=== PATIENT | female | born 1950 | race Caucasian/White ===

== ENCOUNTER 2018-03-07 12:41 | Day surgery (SDC) | payer MEDICARE, OTHER, SELFPAY ==
[2018-03-07] VITALS (9 sets, daily range): BP systolic 93–130; BP diastolic 52–78; PULSE 67–85; RESP 8–20; TEMP 36.5–36.9; O2SAT 95–100; BMI 16.2
[2018-03-07] MEDS: SODIUM CHLORIDE 0.9% 1,000 ML 200 ML IV (13:20)
--- NOTE | 2018-03-07 13:56 | PM.HP.1 ---
History of Present Illness Date Patient Seen: 03/07/18 Time Patient Seen: 13:56 Chief complaint: [id number] Narrative: Jennifer is a very pleasant and remarkably healthy 67-year-old lady who presents for screening colonoscopy. She denies any problems or symptoms related to the function of her GI tract. She reports she needs colonoscopy as per the health maintenance program. She reports her last colonoscopy was 10 years ago and she had a single benign polyp removed. Patient History Family & Social History Family History: Reviewed 03/07/18 by Josefina De Jesus MD Social History: household members spouse Meds Home Medications Medication Instructions Recorded Confirmed Type cyanocobalamin (vitamin B-12) 1,000 mcg PO QDAY #0 12/08/16 03/07/18 History Vitamin D3 2,000 mg DAILY 03/07/18 03/07/18 History calcium carb-mag hydrox-simeth 400 mg DAILY 03/07/18 03/07/18 History Allergies Allergy/AdvReac Type Severity Reaction Status Date / Time No Known Drug Allergies Allergy Verified 03/07/18 13:03 Review of Systems Review of Systems All systems reviewed & are unremarkable except as noted in HPI and below Exam Vital Signs (past 8 hours): - 03/07/18 13:07 Temperature 97.7 F Pulse Rate 69 Respiratory Rate 15 Blood Pressure 130/78 Pulse Oximetry 99 Oxygen Delivery Method Room Air Narrative Exam Narrative: Very thin but pleasant lady in no distress HEENT: Normocephalic and atraumatic, pupils equal round reactive to light accommodation with anicteric sclera Lungs: Clear to auscultation bilaterally Heart: Regular rate and rhythm without murmur rub or gallop Abdomen: Soft, nontender, active bowel sounds, notably scaphoid Extremities: Warm well perfused Assessment & Plan Plan: Assessment/Plan Narrative: Very pleasant and healthy 67-year-old lady here for screening colonoscopy. We discussed the risks and benefits of the procedure the patient has expressed a desire to complete it today. She is ASA 2 as she is significantly underweight.
[2018-03-07] MEDS: MIDAZOLAM 5 MG/5 ML VIAL IV (14:15)
[2018-03-07] MEDS: fentaNYL 250 MCG/5 ML INJ IV (14:16)
--- NOTE | 2018-03-07 14:21 | PM.OP.1 ---
Operative Date/Time/Diagnoses Date of procedure: 03/07/18 Time of procedure: 14:22 Post-op diagnosis: same Procedure & Clinicians Procedure: Colonoscopy to the cecum Same procedure as scheduled: Yes Indications: Last colonoscopy 10 years ago Surgeon: Josefina De Jesus Click Yes if Unassisted: Yes Anesthesia Type: Sedation (Versed 7 mg; fentanyl 175 mcg) Operative Notes Findings: 1. Excellent prep 2. No polyps or mass lesions 3. No AV malformations 4. Very minimal diverticulosis limited the sigmoid region 5. Tortuous sigmoid colon 6. Grade 1 internal hemorrhoids Closure Type: not applicable Procedure in detail: After obtaining informed consent, the patient was brought to the GI suite and placed in the left lateral decubitus position on the examination table. After placement of appropriate monitors, the patient was given incremental doses of Versed and Fentanyl until an appropriate level of sedation was achieved. A time out was held per [facility] protocol. A digital rectal examination was performed and did not reveal any masses or obstructing lesions. The colonoscope was gently passed into the patient's anus and the entire colon navigated to the level of the cecum with moderate difficulty due to colon tortuosity. External pressure was applied to fully navigate the sigmoid and transverse colons. Once in the cecum, the scope was withdrawn being sure to go before and beyond all mucosal folds and prominences and get an excellent examination. The findings are noted above. At the level of the rectal vault, the scope was retroflexed and the internal anal canal was examined. The scope was straightened and air aspirated from the colon. The instrument was removed from the patient's body and the procedure was concluded. Total sedation time was 18 min Total withdrawal time was 9 min 3 sec The patient was allowed to awaken from sedation without difficulty and taken to the post-anesthesia care unit in good condition. Complications: none Condition: stable Disposition: PACU Plan for aftercare: 1. Discharge to home 2. Plan for next colonoscopy in 10 years or as clinically indicated
== END 2018-03-07 15:20 | disposition home or self-care (01) ==
PROVIDERS: Visit Provider Surgery
PROC: 0DJD8ZZ Inspection of Lower Intestinal Tract, Via Natural or Artificial Opening Endoscopic (ICD-10-PCS; CPT 45378; principal; 2018-03-07 13:45)
DX: Z86.010 Personal history of colon polyps (principal); K57.30 Diverticulosis of large intestine without perforation or abscess without bleeding; K64.0 First degree hemorrhoids
CPT/HCPCS: G0105; 99152; J2250; J3010

== ENCOUNTER → 2018-06-13 08:56 | Outpatient (CLI) | payer MEDICARE, OTHER, SELFPAY ==
--- NOTE | 2018-06-13 | DI.RAD.S_ITS ---
PROCEDURE: XR HIP W PEL IF DONE RT 2V INDICATIONS: RIGHT HIP PAIN TECHNIQUE: AP pelvis with lateral view(s) of the right hip(s). COMPARISON: None. FINDINGS: Bones: No fractures or dislocations. Pelvic ring appears intact. No suspicious bony lesions. Mild degenerative bilateral hip joint space narrowing. Old pubic rami fractures are noted. Soft tissues: The visualized bowel gas pattern is normal. No suspicious soft tissue calcifications. IMPRESSION: Degenerative changes. Old pubic rami fractures. Dictated by: Mary Alice Brennan M.D. on 06/13/2018 at 10:57 Approved by: Mary Alice Brennan M.D. on 06/13/2018 at 10:58
--- NOTE | 2018-06-13 | DI.MRI.S_ITS ---
PROCEDURE: MR KNEE LT WO CON INDICATIONS: INTERNAL DERANGEMENT OF LEFT KNEE TECHNIQUE: Noncontrast sagittal PD fast spin echo and T2 fast spin echo with fat saturation, sagittal 3-D FLASH with fat saturation; coronal T1 spin echo and PD fast spin echo with fat saturation, and axial PD fast spin echo with fat saturation through the knee. COMPARISON: None. FINDINGS: Image quality: Excellent. Menisci: The medial and lateral menisci demonstrate normal morphology and internal signal. The meniscal root ligaments appear intact. Cruciate ligaments: The anterior and posterior cruciate ligaments appear intact. Medial structures: The medial collateral ligament appears intact. The posterior oblique ligament, semimembranosus tendon insertions, oblique popliteal ligament, and meniscocapsular junction appear intact. Visualized portions of the pes anserinus tendons appear normal. There is fluid collection adjacent to the medial patellar retinaculum measuring 1.5 cm transverse x 4.5 cm anterior posterior x 5.8 cm cephalocaudal. Lateral structures: The lateral collateral ligament, long and short heads of the biceps femoris tendon appear intact. The popliteus tendon appears normal; the popliteofibular ligament appears intact. The posterosuperior and anteroinferior popliteomeniscal fascicles appear intact. The arcuate and fabellofibular ligaments appear intact, on either side of the lateral inferior geniculate artery. Iliotibial band appears normal. Anterior structures: The quadriceps and patellar tendons appear intact. Patellar alignment is normal. No femoral trochlear dysplasia or ventral trochlear prominence. No edema in the infrapatellar fat pad. Mild prepatellar soft tissue swelling. Bones and cartilage: No bone marrow contusions or fractures. The cartilage of the medial and lateral femorotibial compartments, as well as the patellofemoral compartment, appears normal in thickness. Joint space: There is physiologic knee joint fluid. Small Sanon's cyst. Normal appearing synovial plicae are incidentally noted. IMPRESSION: 1. A 1.5 x 4.5 x 5.8 cm fluid collection adjacent to the medial patellar retinaculum, most likely a hematoma or seroma. 2. Nonspecific prepatellar soft tissue swelling. 3. Small Sanon's cyst. Dictated by: Brendan Muñiz M.D. on 06/13/2018 at 12:29 Approved by: Brendan Muñiz M.D. on 06/13/2018 at 17:50
== END ==
PROVIDERS: PCP Family Medicine; Visit Provider Family Medicine
DX: M23.92 Unspecified internal derangement of left knee (principal); M71.22 Synovial cyst of popliteal space [Baker], left knee; M79.89 Other specified soft tissue disorders; M25.551 Pain in right hip; M16.0 Bilateral primary osteoarthritis of hip
CPT/HCPCS: 73502; 73721

== ENCOUNTER 2021-01-05 13:37 | Inpatient (IN) | payer MEDICARE, OTHER, SELFPAY ==
[2021-01-05] VITALS (13 sets, daily range): BP systolic 130–165; BP diastolic 60–74; PULSE 69–96; RESP 12–25; TEMP 35.9–37.1; O2SAT 95–100; BMI 16.9
--- NOTE | 2021-01-05 14:25 | DI.CT.S_ITS ---
PROCEDURE: CT ABDOMEN PELVIS W CON INDICATIONS: Generalized abdominal pain/N/V TECHNIQUE: After the administration of intravenous contrast, axial sections acquired from the lung bases to the pubic symphysis. Coronal and sagittal reformats were performed. For radiation dose reduction, the following was used: automated exposure control, adjustment of mA and/or kV according to patient size. COMPARISON: None. FINDINGS: Image quality: Excellent. Lung bases: There are multiple small bibasilar pulmonary nodules. 3 such pulmonary nodules are present on image 1/3 4th pulmonary nodule is present on image 3/3. These are all less than or equal to 5 mm. Heart: No significant findings. ABDOMEN: Liver: Unremarkable. Gallbladder: Numerous small gallstones are present. No gallbladder wall thickening. Biliary ducts: Unremarkable. Pancreas: Unremarkable. Spleen: Minimal splenic tissue, suggesting possible remote splenectomy with residual splenosis.. Adrenal Glands: Unremarkable. Kidneys and Ureters: Unremarkable. Stomach and Bowel: There is a high-grade small-bowel obstruction. Small bowel loops measure up to 4.4 cm. The obstruction may be at the level of the distal jejunum or proximal ileum. Peritoneum: Mild free fluid. No free air. Ventral Wall: No hernias. Abdominal Nodes: No retroperitoneal or mesenteric adenopathy by size criteria. Vessels: Aorta and inferior vena cava are normal in size. PELVIS: Pelvic Organs: Unremarkable. Bladder: Unremarkable. Pelvic Nodes: No enlarged lymph nodes. Miscellaneous: No hernias are seen. Bones: Deformity of the left pubic symphysis and left ischium suggests remote fractures. IMPRESSION: 1. High-grade small-bowel obstruction, possibly at the level of the distal jejunum or proximal ileum. Mild associated ascites. 2. Cholelithiasis. 3. 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 Dictated by: Buddy Price M.D. on 01/05/2021 at 15:35 Approved by: Buddy Price M.D. on 01/05/2021 at 15:46
[2021-01-05 14:26] LABS: Basophils Absolute Auto 0 /uL (0-100); Basophils Percent Auto 0.1 % (0-2); Eosinophils Absolute Auto 0 /uL (0-450); Eosinophils Percent Auto 0.1 % (2-4); Hematocrit 44.3 % (36-46); Lymphocytes Absolute Auto 600 /uL (1100-4500); Lymphocytes Percent Auto 4.2 % (25-40); Mean Corpuscular HGB Conc 33.8 % (30-36); Mean Corpuscular Hemoglobin 32.5 PG (26-34); Mean Corpuscular Volume 96.4 fL (80-100); Monocytes Absolute Auto 1100 /uL (0-900); Monocytes Percent Auto 7.1 % (3-14); Neutrophils Absolute Auto 13400 /uL (1500-7000); Neutrophils Percent Auto 88.5 % (50-75); Platelet Count 198 X10^3/uL (150-400); Red Cell Distribution Width 12.3 % (11.6-14.8); White Blood Cell Count 15.2 X10^3/uL (4.5-11.0)
[2021-01-05 14:27] LABS: Add Manual Diff / Slide Review SLIDE REVIEW
--- NOTE | 2021-01-05 14:27 | DI.US.S_ITS ---
PROCEDURE: US ABDOMEN LIMITED INDICATIONS: RUQ PAIN; N/V TECHNIQUE: Real-time scanning was performed of the right upper quadrant, with image documentation. COMPARISON: [facility], CT, CT ABDOMEN PELVIS W CON, 01/05/2021, 14:54. FINDINGS: Liver: Liver is normal in size and homogeneous in echotexture. Gallbladder: Not significantly dilated. Filled with gallstones. A larger stone measuring 7 mm. Several stones near the gallbladder neck. Normal gallbladder wall thickness. No pericholecystic fluid. Negative sonographic Thompson's sign. Biliary ducts: Intrahepatic bile ducts are non-dilated. Extrahepatic bile duct caliber measures 7 mm. Normal is 6-7 mm or less in diameter, or 10 mm or less post-cholecystectomy. Pancreas: Visualized portions of the pancreas are sonographically normal. IMPRESSION: No acute cholecystitis demonstrated. Numerous gallstones. Dictated by: Levi Simmons M.D. on 01/05/2021 at 15:28 Approved by: Levi Simmons M.D. on 01/05/2021 at 15:31
[2021-01-05 14:39] LABS: Alanine Aminotransferase 22 IU/L (<35); Albumin 4.9 g/dL (3.5-5.0); Albumin Globulin Ratio 1.5 (1.0-2.8); Alkaline Phosphatase 106 U/L (38-126); Aspartate Aminotransferase 37 IU/L (14-36); BUN Creatinine Ratio 38.1 (6-22); Bilirubin Total 1.1 mg/dL (0.2-1.3); Blood Urea Nitrogen 24 mg/dL (7-17); Calcium 9.9 mg/dL (8.4-10.2); Carbon Dioxide 29 mmol/L (22-32); Chloride 94 mmol/L (98-107); Estimated Glomerular Filt Rate > 60.0 mL/min (>60); Globulin 3.3 g/dL (1.7-4.1); Glucose 132 mg/dL (80-110); HEMOLYSIS < 15 (0-50); Lipase 73 U/L (23-300); Potassium 3.9 mmol/L (3.4-5.1); Sodium 132 mmol/L (137-145); Total Protein 8.2 g/dL (6.3-8.2)
[2021-01-05] MEDS: SODIUM CHLORIDE 0.9% 1,000 ML 1000 ML IV (14:39)
[2021-01-05] MEDS: ONDANSETRON 4 MG/2 ML INJ IV ×2 (14:40→22:32)
[2021-01-05 14:57] LABS: RBC Morphology Normal Morphology
[2021-01-05 14:59] LABS: Platelet Morphology Comment NOTE
[2021-01-05] MEDS: FAMOTIDINE 20 MG/2 ML VIAL IV (15:15)
[2021-01-05] MEDS: MAG HYDROX/ALUMINUM/SIMETH SUS 20 ML, LIDOCAINE VISCOUS 2% 15 ML PO (15:15)
[2021-01-05 16:24] LABS: Bacteria Urine None Seen; Calcium Oxalate Crystals Urine Many; RBC Urine 0-1/HPF (0-5/HPF); Squamous Epithelial Cell Urine 0-1 /HPF (0-5/HPF); WBC Urine 0-1/HPF (0-5/HPF)
[2021-01-05 16:25] LABS: Culture Indicated Urine Cult Not Indicated
--- NOTE | 2021-01-05 16:44 | ED_ITS ---
HPI - Abdominal Pain <Nathaniel De Anda PA-C - Last Filed: 01/05/21 17:23> General Chief Complaint: Abdominal Pain Stated Complaint: abd pain, fever, vomiting Time Seen by Provider: 01/05/21 13:54 Source: patient Mode of arrival: Ambulatory History of Present Illness HPI narrative: 70-year-old female with no reported past medical history presents to the ED with 3 days of abdominal pain, nausea, vomiting. Patient states that her symptoms started suddenly with 8/10 generalized abdominal pain, followed by intractable vomiting. Patient states that her vomit turned a darker color the good dark brown yesterday. Patient also endorses a fever T-max 100.4. Denies chills, chest pain, shortness of breath, cough, diarrhea, constipation, lightheadedness, dizziness, syncope. Last bowel movement was yesterday morning, which patient describes as normal. Patient denies hematochezia, melena. Patient endorses similar episodes of abdominal pain that resolved spontaneously in the past, just not as severe as this episode. Patient has a history of splenectomy and hysterectomy. Related Data Home Medications Medication Instructions Recorded Confirmed cyanocobalamin (vitamin B-12) 1,000 mcg PO QDAY #0 12/08/16 03/07/18 1,000 mcg tablet,extended release Vitamin D3 2,000 mg DAILY 03/07/18 03/07/18 calcium carb-mag hydrox-simeth 400 mg DAILY 03/07/18 03/07/18 Allergies Allergy/AdvReac Type Severity Reaction Status Date / Time No Known Drug Allergies Allergy Verified 03/07/18 13:03 Review of Systems <Nathaniel De Anda PA-C - Last Filed: 01/05/21 17:23> Constitutional Constitutional: Denies chills, Denies fatigue, Reports fever(s), Denies frequent falls, Denies lethargy and Denies weakness Eyes Eyes: Denies change in vision, Denies eye discharge, Denies irritation and Denies loss of vision ENT Ears, Nose, Mouth, and Throat: Denies change in voice, Denies dizziness, Denies neck pain, Denies sore throat and Denies throat swelling Cardiovascular Cardiovascular: Denies chest pain, Denies irregular heart rhythm, Denies lightheadedness, Denies palpitations, Denies dyspnea, Denies dyspnea on exertion and Denies orthopnea Respiratory Respiratory: Denies cough, Denies dyspnea, Denies dyspnea on exertion and Denies wheezing Gastrointestinal Gastrointestinal: Reports abdominal pain, Denies change in bowel habits, Denies diarrhea, Reports nausea and Reports vomiting Genitourinary Genitourinary: Denies dysuria Musculoskeletal Musculoskeletal: Denies neck pain and Denies numbness Integumentary/Breasts Skin/Breast: Denies pruritus, Denies erythema, Denies rash and Denies wounds Neurologic Neurologic: Denies behavioral changes, Denies confusion, Denies dizziness, Denies frequent falls, Denies loss of vision, Denies numbness and Denies weakness Psychiatric Psychiatric: Denies anxiety, Denies behavioral changes, Denies confusion, Denies depression, Denies homicidal ideation and Denies suicidal ideation Endocrine Endocrine: Denies fatigue, Denies flushing and Denies palpitations Hematologic/Lymphatic Hematologic/Lymphatic: Denies easy bruising Allergic/Immunologic Allergic/Immunologic: Denies urticaria, Denies throat swelling and Denies wheezing Patient History <Nathaniel De Anda PA-C - Last Filed: 01/05/21 17:23> Social History household members: spouse Exam <Nathaniel De Anda PA-C - Last Filed: 01/05/21 17:23> Initial Vital Signs Initial Vital Signs: Vital Signs Temperature 98.7 F 01/05/21 13:41 Pulse Rate 96 H 01/05/21 13:41 Respiratory Rate 22 01/05/21 13:41 Blood Pressure 165/74 H 01/05/21 13:41 Pulse Oximetry 99 01/05/21 13:41 Const General: cooperative Nutritional Appearance: underweight [facility] Head: normocephalic and atraumatic Ears: external ears normal and TM's normal bilaterally Nose: external nose normal and No nasal discharge Face and sinus: sinuses nontender, face symmetric, no sinus tenderness and No dry mucous membranes Mouth: oral mucosae normal and moist mucous membranes Teeth and gingiva: dentition normal Throat: tonsils normal and uvula midline Eyes General: appearance normal, both eyes and all related structures Eyelids: eyelids normal Conjunctivae: conjunctivae normal Sclera: sclerae normal Pupils: PERRL EOM: EOM intact bilaterally Neck Neck: normal visual inspection, trachea midline, No lymphadenopathy, No midline deformity and No JVD Lymphatic: No lymphedema Chest Chest: normal inspection of the chest Resp Effort & Inspection: normal respiratory effort, able to speak in complete sentences, no respiratory distress and no use of accessory muscles Auscultation: clear to auscultation bilaterally, no rales, no rhonchi and no wheezes Cardio Rate: regular rate Rhythm: regular rhythm Heart Sounds: no click, no gallops, no murmurs and no rubs Pulses: normal peripheral pulses GI Inspection: non-distended Palpation: soft, no hepatosplenomegaly, No guarding, No pulsatile mass and No tender Auscultation: normal bowel sounds Other: Abdomen soft, nondistended. Diffusely tender to palpation. No CVA ten derness. No rebound, guarding. General: No CVA tenderness Back/Spine/Pelvis Back: No CVA tenderness Cervical Spine: cervical ROM normal and No pain with cervical ROM Thoracic/Lumbar Spine: thoracic and lumbar spine normal to inspection Skin General: no rashes or lesions noted, No jaundice and No petechiae Neuro General: patient alert, patient oriented x3, gait normal and no focal motor deficits Speech: speech normal Extrem General: full ROM, no clubbing, cyanosis or edema, no pedal edema and no calf tenderness Psych Appearance: well kempt Mental Status: mental status grossly normal Attitude: cooperative Thought Content: normal and suicidality Judgment: judgment good <Wilfredo Bolden DO - Last Filed: 01/05/21 17:24> Initial Vital Signs Initial Vital Signs: Vital Signs Temperature 98.7 F 01/05/21 13:41 Pulse Rate 96 H 01/05/21 13:41 Respiratory Rate 22 01/05/21 13:41 Blood Pressure 165/74 H 01/05/21 13:41 Pulse Oximetry 99 01/05/21 13:41 Course <Nathaniel De Anda PA-C - Last Filed: 01/05/21 17:23> Course Course Narrative: Ultrasound abdomen shows cholelithiasis without evidence of acute cholecystitis. CT abdomen and pelvis shows high-grade small-bowel obstruction with mild associated ascites. Patient stable in the ED, vomiting controlled with Zofran. Patient declined morphine for pain. Patient appears comfortable. Patient is NPO. No NG tube at this time, given patient not vomiting. Matt from surgery consulted. Will admit to surgery. Orders Ordered: ED Orders 01/05/21 13:43 EKG-12 Lead Stat 01/05/21 14:00 Complete Blood Count AUTO DIFF Stat Comprehensive Metabolic Panel Stat Lipase Stat 01/05/21 14:25 CT abdomen pelvis w con Stat 01/05/21 14:27 US abdomen limited Stat 01/05/21 15:25 Urine Microscopic Stat 01/05/21 16:32 COVID19 - ADMIT (DIRECT MAIL MANAGER swab/PCR) Stat 01/06/21 05:00 Basic Metabolic Panel Routine Famotidine (Famotidine 20 Mg/2 Ml Vial) 20 mg IV NOW SEBASTIEN Last Admin: 01/05/21 15:15 Dose: 20 mg Documented by: CHRISSY Discontinued Medications Al Hydrox/Mg Hydrox/Simethicone 20 ml/ Lidocaine HCl 15 ml 0 ml PO NOW ONE Stop: 01/05/21 14:48 Last Admin: 01/05/21 15:15 Dose: 35 ml Documented by: CHRISSY Sodium Chloride (Normal Saline 0.9%) 1,000 mls @ 1,000 mls/hr IV BOLUS ONE Stop: 01/05/21 15:26 Last Infusion: 01/05/21 16:45 Dose: 0 mls/hr Documented by: Admin: 01/05/21 14:39 Dose: 1,000 mls/hr Documented by: CHRISSY Ketorolac Tromethamine (Ketorolac 30 Mg/Ml Vial) 15 mg IM NOW ONE Stop: 01/05/21 14:40 Last Admin: 01/05/21 14:52 Dose: Not Given Documented by: CHRISSY Morphine Sulfate (Morphine 4 Mg/Ml Inj) 4 mg IV NOW ONE Stop: 01/05/21 14:28 Ondansetron HCl (Ondansetron 4 Mg/2 Ml Inj) 4 mg IV NOW ONE Stop: 01/05/21 14:28 Last Admin: 01/05/21 14:40 Dose: 4 mg Documented by: CHRISSY Vital Signs Vital signs: Vital Signs - 8 hr 01/05/21 13:41 01/05/21 14:01 01/05/21 14:04 Temperature 98.7 F Pulse Rate 96 H 80 72 Respiratory Rate 22 Blood Pressure 165/74 H 143/74 H Pulse Oximetry 99 99 98 01/05/21 14:30 01/05/21 15:04 01/05/21 15:30 Temperature Pulse Rate 69 78 69 Respiratory Rate 12 20 22 Blood Pressure 144/73 H Pulse Oximetry 97 100 99 01/05/21 15:32 01/05/21 16:00 01/05/21 16:30 Temperature Pulse Rate 74 70 75 Respiratory Rate 21 24 25 H Blood Pressure 145/68 H 141/69 H 140/73 Pulse Oximetry 100 100 100 <Wilfredo Bolden, DO - Last Filed: 01/05/21 17:24> Orders Ordered: ED Orders 01/05/21 13:43 EKG-12 Lead Stat 01/05/21 14:00 Complete Blood Count AUTO DIFF Stat Comprehensive Metabolic Panel Stat Lipase Stat 01/05/21 14:25 CT abdomen pelvis w con Stat 01/05/21 14:27 US abdomen limited Stat 01/05/21 15:25 Urine Microscopic Stat 01/05/21 16:32 COVID19 - ADMIT (DIRECT MAIL MANAGER swab/PCR) Stat 01/06/21 05:00 Basic Metabolic Panel Routine Famotidine (Famotidine 20 Mg/2 Ml Vial) 20 mg IV NOW SEBASTIEN Last Admin: 01/05/21 15:15 Dose: 20 mg Documented by: CHRISSY Discontinued Medications Al Hydrox/Mg Hydrox/Simethicone 20 ml/ Lidocaine HCl 15 ml 0 ml PO NOW ONE Stop: 01/05/21 14:48 Last Admin: 01/05/21 15:15 Dose: 35 ml Documented by: CHRISSY Sodium Chloride (Normal Saline 0.9%) 1,000 mls @ 1,000 mls/hr IV BOLUS ONE Stop: 01/05/21 15:26 Last Infusion: 01/05/21 16:45 Dose: 0 mls/hr Documented by: Admin: 01/05/21 14:39 Dose: 1,000 mls/hr Documented by: CHRISSY Ketorolac Tromethamine (Ketorolac 30 Mg/Ml Vial) 15 mg IM NOW ONE Stop: 01/05/21 14:40 Last Admin: 01/05/21 14:52 Dose: Not Given Documented by: CHRISSY Morphine Sulfate (Morphine 4 Mg/Ml Inj) 4 mg IV NOW ONE Stop: 01/05/21 14:28 Ondansetron HCl (Ondansetron 4 Mg/2 Ml Inj) 4 mg IV NOW ONE Stop: 01/05/21 14:28 Last Admin: 01/05/21 14:40 Dose: 4 mg Documented by: CHRISSY Vital Signs Vital signs: Vital Signs - 8 hr 01/05/21 13:41 01/05/21 14:01 01/05/21 14:04 Temperature 98.7 F Pulse Rate 96 H 80 72 Respiratory Rate 22 Blood Pressure 165/74 H 143/74 H Pulse Oximetry 99 99 98 01/05/21 14:30 01/05/21 15:04 01/05/21 15:30 Temperature Pulse Rate 69 78 69 Respiratory Rate 12 20 22 Blood Pressure 144/73 H Pulse Oximetry 97 100 99 01/05/21 15:32 01/05/21 16:00 01/05/21 16:30 Temperature Pulse Rate 74 70 75 Respiratory Rate 21 24 25 H Blood Pressure 145/68 H 141/69 H 140/73 Pulse Oximetry 100 100 100 MDM - Abdominal Pain <Nathaniel De Anda PA-C - Last Filed: 01/05/21 17:23> Lab Data Lab results narrative: WBC elevated to 15.2 Result diagrams: 01/05/21 14:00 01/05/21 14:00 Labs: Lab Results 01/05/21 01/05/21 01/05/21 Range/Units 14:00 14:00 15:25 WBC 15.2 H (4.5-11.0) X10^3/uL RBC 4.60 (4.0-5.2) X10^6/uL Hgb 15.0 (12.0-16.0) g/dL Hct 44.3 (36-46) % MCV 96.4 (80-100) fL MCH 32.5 (26-34) PG MCHC 33.8 (30-36) % RDW 12.3 (11.6-14.8) % Plt Count 198 (150-400) X10^3/uL Neut % (Auto) 88.5 H (50-75) % Lymph % (Auto) 4.2 L (25-40) % [place] % (Auto) 7.1 (3-14) % Eos % (Auto) 0.1 L (2-4) % Baso % (Auto) 0.1 (0-2) % Neut # (Auto) 06616 H (7904-2305) /uL Lymph # (Auto) 600 L (3968-3792) /uL [place] # (Auto) 1100 H (0-900) /uL Eos # (Auto) 0 (0-450) /uL Baso # (Auto) 0 (0-100) /uL Plt Morphology Comment Note RBC Morphology Normal morphology Sodium 132 L (137-145) mmol/L Potassium 3.9 (3.4-5.1) mmol/L Chloride 94 L (98-107) mmol/L Carbon Dioxide 29 (22-32) mmol/L BUN 24 H (7-17) mg/dL Creatinine 0.63 (0.52-1.04) mg/dL Estimated GFR > 60.0 (>60) mL/min BUN/Creatinine Ratio 38.1 H (6-22) Glucose 132 H (80-110) mg/dL Calcium 9.9 (8.4-10.2) mg/dL Total Bilirubin 1.1 (0.2-1.3) mg/dL AST 37 H (14-36) IU/L ALT 22 (<35) IU/L Alkaline Phosphatase 106 (38-126) U/L Total Protein 8.2 (6.3-8.2) g/dL Albumin 4.9 (3.5-5.0) g/dL Globulin 3.3 (1.7-4.1) g/dL Albumin/Globulin Ratio 1.5 (1.0-2.8) Lipase 73 (23-300) U/L Urine RBC 0-1/hpf (0-5/HPF) Urine WBC 0-1/hpf (0-5/HPF) Ur Squamous Epith Cells 0-1 /hpf (0-5/HPF) Calcium Oxalate Crystal Many H Urine Bacteria None seen (None) Ur Culture Indicated? Cult not indicated SARS-CoV-2 (PCR) (Negative) 01/05/21 Range/Units 16:32 WBC (4.5-11.0) X10^3/uL RBC (4.0-5.2) X10^6/uL Hgb (12.0-16.0) g/dL Hct (36-46) % MCV (80-100) fL MCH (26-34) PG MCHC (30-36) % RDW (11.6-14.8) % Plt Count (150-400) X10^3/uL Neut % (Auto) (50-75) % Lymph % (Auto) (25-40) % [place] % (Auto) (3-14) % Eos % (Auto) (2-4) % Baso % (Auto) (0-2) % Neut # (Auto) (9018-0395) /uL Lymph # (Auto) (1863-4119) /uL [place] # (Auto) (0-900) /uL Eos # (Auto) (0-450) /uL Baso # (Auto) (0-100) /uL Plt Morphology Comment RBC Morphology Sodium (137-145) mmol/L Potassium (3.4-5.1) mmol/L Chloride (98-107) mmol/L Carbon Dioxide (22-32) mmol/L BUN (7-17) mg/dL Creatinine (0.52-1.04) mg/dL Estimated GFR (>60) mL/min BUN/Creatinine Ratio (6-22) Glucose (80-110) mg/dL Calcium (8.4-10.2) mg/dL Total Bilirubin (0.2-1.3) mg/dL AST (14-36) IU/L ALT (<35) IU/L Alkaline Phosphatase (38-126) U/L Total Protein (6.3-8.2) g/dL Albumin (3.5-5.0) g/dL Globulin (1.7-4.1) g/dL Albumin/Globulin Ratio (1.0-2.8) Lipase (23-300) U/L Urine RBC (0-5/HPF) Urine WBC (0-5/HPF) Ur Squamous Epith Cells (0-5/HPF) Calcium Oxalate Crystal Urine Bacteria (None) Ur Culture Indicated? SARS-CoV-2 (PCR) Negative (Negative) Point of care testing: Urine Dip Bedside Urine Glucose Negative Bedside Urine Bilirubin - Negative Bedside Urine Ketone +/- 5 Urine Specific [place] 1.015 Bedside Urine Occult Blood +/- Bedside Urine pH 6.0 Bedside Urine Protein +/- 15 Bedside Urine Urobilinogen - Negative Bedside Urine Nitrite - Negative Bedside Urine Leukocytes - Negative Esterase Imaging Data US - abdomen: Radiologist's Impression: PROCEDURE:? US ABDOMEN LIMITED ? INDICATIONS:? RUQ PAIN; N/V ? TECHNIQUE:? Real-time scanning was performed of the right upper quadrant, with image documentation.? ? COMPARISON:? [facility], CT, CT ABDOMEN PELVIS W CON, 01/05/2021, 14:54. ? FINDINGS:? ? Liver:? Liver is normal in size and homogeneous in echotexture.? ? Gallbladder:? Not significantly dilated.? Filled with gallstones.? A larger stone measuring 7 mm.? Several stones near the gallbladder neck.? Normal gallbladder wall thickness. No pericholecystic fluid. Negative sonographic Thompson's sign.? ? Biliary ducts:? Intrahepatic bile ducts are non-dilated.? Extrahepatic bile duct caliber measures 7 mm.? Normal is 6-7 mm or less in diameter, or 10 mm or less post-cholecystectomy.? ? Pancreas:? Visualized portions of the pancreas are sonographically normal.? ? ? IMPRESSION:? No acute cholecystitis demonstrated.? Numerous gallstones. ? ? ? Dictated by: Levi Simmons M.D. on 01/05/2021 at 15:28 ? ? Approved by: Levi Simmons M.D. on 01/05/2021 at 15:31 ? CT scan - abdomen/pelvis: Radiologist's Impression: PROCEDURE:? CT ABDOMEN PELVIS W CON ? INDICATIONS:? Generalized abdominal pain/N/V ? TECHNIQUE:? After the administration of intravenous contrast, axial sections acquired from the lung bases to the pubic symphysis.? Coronal and sagittal reformats were performed.? For radiation dose reduction, the following was used:? automated exposure control, adjustment of mA and/or kV according to patient size.? ? COMPARISON:? None. ? FINDINGS:? Image quality:? Excellent.? ? Lung bases:? There are multiple small bibasilar pulmonary nodules.? 3 such pulmonary nodules are present on image 1/3 4th pulmonary nodule is present on image 3/3.? These are all less than or equal to 5 mm. Heart:? No significant findings. ? ABDOMEN: Liver:? Unremarkable.? ? Gallbladder:? Numerous small gallstones are present.? No gallbladder wall thickening.? ? Biliary ducts:? Unremarkable.? ? Pancreas:? Unremarkable.? ? Spleen:? Minimal splenic tissue, suggesting possible remote splenectomy with residual splenosis..? ? Adrenal Glands:? Unremarkable.? ? Kidneys and Ureters:? Unremarkable.? ? ? Stomach and Bowel:? There is a high-grade small-bowel obstruction.? Small bowel loops measure up to 4.4 cm.? The obstruction may be at the level of the distal jejunum or proximal ileum.? Peritoneum:? Mild free fluid.? No free air.? ? Ventral Wall: ? No hernias.? Abdominal Nodes:? No retroperitoneal or mesenteric adenopathy by size criteria.? Vessels:? Aorta and inferior vena cava are normal in size.? ? PELVIS: Pelvic Organs:? Unremarkable.? ? Bladder:? Unremarkable.? ? Pelvic Nodes: No enlarged lymph nodes.? Miscellaneous: No hernias are seen. ? ? ? Bones:? Deformity of the left pubic symphysis and left ischium suggests remote fractures. ? ? IMPRESSION:? ? 1. High-grade small-bowel obstruction, possibly at the level of the distal jejunum or proximal ileum.? Mild associated ascites. ? 2. Cholelithiasis.? ? 3. Remote splenectomy, old healed pelvic fractures.? ? Dictated by: Buddy Price M.D. on 01/05/2021 at 15:35 ? ? Approved by: Buddy Price M.D. on 01/05/2021 at 15:46 ? ECG Data Interpretation: Normal sinus rhythm, no ST-T changes, no axis deviation MDM Narrative Medical decision making narrative: 70-year-old female with no reported past medical history presents to the ED with 3 days of abdominal pain, nausea, vomiting. Concern for cholecystitis versus cholangitis versus choledocholithiasis versus PUD versus gastritis versus GERD versus pancreatitis versus SBO. Will order labs, lipase, lactate, CT abdomen pelvis, ultrasound right upper quadrant. Will give morphine, Zofran, GI cocktail, Pepcid, IV fluid s. Will reassess. <Wilfredo Bolden, DO - Last Filed: 01/05/21 17:24> Lab Data Labs: Lab Results 01/05/21 01/05/21 01/05/21 Range/Units 14:00 14:00 15:25 WBC 15.2 H (4.5-11.0) X10^3/uL RBC 4.60 (4.0-5.2) X10^6/uL Hgb 15.0 (12.0-16.0) g/dL Hct 44.3 (36-46) % MCV 96.4 (80-100) fL MCH 32.5 (26-34) PG MCHC 33.8 (30-36) % RDW 12.3 (11.6-14.8) % Plt Count 198 (150-400) X10^3/uL Neut % (Auto) 88.5 H (50-75) % Lymph % (Auto) 4.2 L (25-40) % [place] % (Auto) 7.1 (3-14) % Eos % (Auto) 0.1 L (2-4) % Baso % (Auto) 0.1 (0-2) % Neut # (Auto) 92843 H (8482-7659) /uL Lymph # (Auto) 600 L (9333-7956) /uL [place] # (Auto) 1100 H (0-900) /uL Eos # (Auto) 0 (0-450) /uL Baso # (Auto) 0 (0-100) /uL Plt Morphology Comment Note RBC Morphology Normal morphology Sodium 132 L (137-145) mmol/L Potassium 3.9 (3.4-5.1) mmol/L Chloride 94 L (98-107) mmol/L Carbon Dioxide 29 (22-32) mmol/L BUN 24 H (7-17) mg/dL Creatinine 0.63 (0.52-1.04) mg/dL Estimated GFR > 60.0 (>60) mL/min BUN/Creatinine Ratio 38.1 H (6-22) Glucose 132 H (80-110) mg/dL Calcium 9.9 (8.4-10.2) mg/dL Total Bilirubin 1.1 (0.2-1.3) mg/dL AST 37 H (14-36) IU/L ALT 22 (<35) IU/L Alkaline Phosphatase 106 (38-126) U/L Total Protein 8.2 (6.3-8.2) g/dL Albumin 4.9 (3.5-5.0) g/dL Globulin 3.3 (1.7-4.1) g/dL Albumin/Globulin Ratio 1.5 (1.0-2.8) Lipase 73 (23-300) U/L Urine RBC 0-1/hpf (0-5/HPF) Urine WBC 0-1/hpf (0-5/HPF) Ur Squamous Epith Cells 0-1 /hpf (0-5/HPF) Calcium Oxalate Crystal Many H Urine Bacteria None seen (None) Ur Culture Indicated? Cult not indicated SARS-CoV-2 (PCR) (Negative) 09/20/21 Range/Units 16:32 WBC (4.5-11.0) X10^3/uL RBC (4.0-5.2) X10^6/uL Hgb (12.0-16.0) g/dL Hct (36-46) % MCV (80-100) fL MCH (26-34) PG MCHC (30-36) % RDW (11.6-14.8) % Plt Count (150-400) X10^3/uL Neut % (Auto) (50-75) % Lymph % (Auto) (25-40) % [place] % (Auto) (3-14) % Eos % (Auto) (2-4) % Baso % (Auto) (0-2) % Neut # (Auto) (9660-0546) /uL Lymph # (Auto) (7067-3390) /uL [place] # (Auto) (0-900) /uL Eos # (Auto) (0-450) /uL Baso # (Auto) (0-100) /uL Plt Morphology Comment RBC Morphology Sodium (137-145) mmol/L Potassium (3.4-5.1) mmol/L Chloride (98-107) mmol/L Carbon Dioxide (22-32) mmol/L BUN (7-17) mg/dL Creatinine (0.52-1.04) mg/dL Estimated GFR (>60) mL/min BUN/Creatinine Ratio (6-22) Glucose (80-110) mg/dL Calcium (8.4-10.2) mg/dL Total Bilirubin (0.2-1.3) mg/dL AST (14-36) IU/L ALT (<35) IU/L Alkaline Phosphatase (38-126) U/L Total Protein (6.3-8.2) g/dL Albumin (3.5-5.0) g/dL Globulin (1.7-4.1) g/dL Albumin/Globulin Ratio (1.0-2.8) Lipase (23-300) U/L Urine RBC (0-5/HPF) Urine WBC (0-5/HPF) Ur Squamous Epith Cells (0-5/HPF) Calcium Oxalate Crystal Urine Bacteria (None) Ur Culture Indicated? SARS-CoV-2 (PCR) Negative (Negative) Point of care testing: Urine Dip Bedside Urine Glucose Negative Bedside Urine Bilirubin - Negative Bedside Urine Ketone +/- 5 Urine Specific [place] 1.015 Bedside Urine Occult Blood +/- Bedside Urine pH 6.0 Bedside Urine Protein +/- 15 Bedside Urine Urobilinogen - Negative Bedside Urine Nitrite - Negative Bedside Urine Leukocytes - Negative Esterase Discharge Plan Departure Patient Disposition: Admitted to Surgery Clinical Impression: SBO (small bowel obstruction) Admit Date/Time: 01/05/21 17:06 Admit Provider: Lulu Gutierrez <Wilfredo Bolden, - Last Filed: 01/05/21 17:24> Cosign ED Attending Cosignature Attestation: Dr Bolden Co-Sign Statement: I was available for consultation during this patient's emergency department visit. This chart is signed by myself for administrative purposes only. I did not have direct contact with this patient during this visit. They were seen in dependently by the APC.
[2021-01-05 17:23] LABS: COVID19 - ADMIT (NP swab/PCR) Negative (Negative)
[2021-01-05] MEDS: LACTATED RINGERS 1,000 ML 125 ML IV (18:11)
[2021-01-06] VITALS (7 sets, daily range): BP systolic 130–150; BP diastolic 60–81; PULSE 64–97; RESP 17–20; TEMP 36.3–37.6; O2SAT 96–100
[2021-01-06] MEDS: MORPHINE 2 MG/ML INJ 1 MG IV (00:33)
[2021-01-06] MEDS: LACTATED RINGERS 1,000 ML 125 ML IV ×2 (02:38→18:55)
[2021-01-06 06:28] LABS: Add Manual Diff / Slide Review NO; Basophils Absolute Auto 0 /uL (0-100); Basophils Percent Auto 0.4 % (0-2); Eosinophils Absolute Auto 0 /uL (0-450); Hematocrit 38.7 % (36-46); Hemoglobin 13.1 g/dL (12.0-16.0); Lymphocytes Absolute Auto 500 /uL (1100-4500); Lymphocytes Percent Auto 4.7 % (25-40); Mean Corpuscular HGB Conc 33.7 % (30-36); Mean Corpuscular Hemoglobin 32.4 PG (26-34); Mean Corpuscular Volume 96.1 fL (80-100); Monocytes Absolute Auto 700 /uL (0-900); Monocytes Percent Auto 5.8 % (3-14); Neutrophils Absolute Auto 10200 /uL (1500-7000); Neutrophils Percent Auto 89.1 % (50-75); Platelet Count 168 X10^3/uL (150-400); Red Blood Cell Count 4.03 X10^6/uL (4.0-5.2); Red Cell Distribution Width 12.4 % (11.6-14.8); White Blood Cell Count 11.4 X10^3/uL (4.5-11.0)
[2021-01-06 06:35] LABS: BUN Creatinine Ratio 37.3 (6-22); Blood Urea Nitrogen 19 mg/dL (7-17); Calcium 8.9 mg/dL (8.4-10.2); Carbon Dioxide 31 mmol/L (22-32); Chloride 99 mmol/L (98-107); Estimated Glomerular Filt Rate > 60.0 mL/min (>60); Glucose 113 mg/dL (80-110); HEMOLYSIS < 15 (0-50); Potassium 3.9 mmol/L (3.4-5.1); Sodium 133 mmol/L (137-145)
--- NOTE | 2021-01-06 07:57 | DI.RAD.S_ITS ---
PROCEDURE: XR ABDOMEN 1V INDICATIONS: NG placement TECHNIQUE: One view of the abdomen acquired. COMPARISON: [facility], CT, CT ABDOMEN PELVIS W CON, 01/05/2021, 14:54. FINDINGS: Surgical changes and devices: Enteric tube courses into the stomach. Multiple clips overlying the left abdomen. Bowel: Mildly prominent loops of small bowel in the left mid abdomen. Stomach is mildly prominent but gaseous distension appears decreased. Soft tissues: Gallstones visualized. No suspicious abdominal calcifications. Visualized solid organ contours appear normal in size. Prominent lung volumes. Heart size is within normal limits. Mediastinum is within normal limits. Bones: No suspicious bony lesions. Scoliosis. IMPRESSION: Enteric tube coursing into the stomach. Prominent loop of small bowel in the left abdomen. Concern for persistent small bowel obstruction. Emphysematous change. Dictated by: Levi Simmons M.D. on 01/06/2021 at 8:15 Approved by: Levi Simmons M.D. on 01/06/2021 at 8:17
--- NOTE | 2021-01-06 10:07 | P.HP_ITS ---
History of Present Illness History of Present Illness Date Patient Seen: 01/06/21 Time Patient Seen: 10:07 Date of Onset of Symptoms: 01/03/21 Chief complaint: abd pain, fever, vomiting Narrative: Three days of nausea and vomiting. Never has she required hospitalization for these episodes until now. Surgical history of 2 C sections and splenectomy (trauma). Episodes start with crampy lower abdominal pain. Nausea and emesis are not routine. She has daily BM's, is vegetarian, and has difficulty maintaining wait. She often bloats after meals. Patient History Comment: C section X2 splenectomy (trauma) Family & Social History Social History: household members spouse Safety & Behavioral: Feels Safe in Current Yes Environment Been Physically Hurt or No Threatened By a Person Suicidal Ideation Description None Suicide Plan Description No Plan Tobacco & Substance use: Smoking Status Never smoker Substance Use Type does not use Meds Home Medications and Allergies Home Medications Medication Instructions Recorded Confirmed Type cyanocobalamin (vitamin B-12) 1,000 mcg PO QDAY #0 12/08/16 01/05/21 History 1,000 mcg tablet,extended release Vitamin D3 2,000 mg DAILY 03/07/18 01/05/21 History Allergies Allergy/AdvReac Type Severity Reaction Status Date / Time No Known Drug Allergies Allergy Verified 03/07/18 13:03 Review of Systems Review of Systems ROS: Yes All systems reviewed with the patient and are negative except as otherwise documented Exam Vital Signs (past 8 hours): - 01/06/21 04:31 01/06/21 07:38 Temperature 98.2 F 98.6 F Pulse Rate 78 64 Respiratory Rate 18 18 Blood Pressure 144/80 H 150/78 H Pulse Oximetry 98 97 Oxygen Delivery Method Room Air Oxygen Flow Rate 0 Const General: cooperative, anxious and frail appearing Nutritional Appearance: underweight [facility] Head: normocephalic and atraumatic Eyes General: appearance normal, both eyes and all related structures Sclera: sclerae normal Neck Neck: trachea midline Chest Other: pectus excavatum Resp Effort & Inspection: normal respiratory effort and able to speak in complete sentences Cardio Rate: regular rate Rhythm: regular rhythm GI Inspection: normal to inspection Palpation: soft Other: rushing bowel tones, not tender Skin General: no rashes or lesions noted and turgor normal Neuro General: patient alert and patient oriented x3 Cognition: normal cognition Extrem General: normal to inspection and full ROM Psych Appearance: grossly normal Attitude: cooperative Judgment: judgment good Objective Labs Result Diagrams: 01/06/21 06:07 01/06/21 06:07 Labs: Laboratory Results - last 24 hr 01/05/21 01/05/21 01/05/21 14:00 14:00 15:25 WBC 15.2 H RBC 4.60 Hgb 15.0 Hct 44.3 MCV 96.4 MCH 32.5 MCHC 33.8 RDW 12.3 Plt Count 198 Neut % (Auto) 88.5 H Lymph % (Auto) 4.2 L [place] % (Auto) 7.1 Eos % (Auto) 0.1 L Baso % (Auto) 0.1 Neut # (Auto) 48063 H Lymph # (Auto) 600 L [place] # (Auto) 1100 H Eos # (Auto) 0 Baso # (Auto) 0 Plt Morphology Comment Note RBC Morphology Normal morphology Sodium 132 L Potassium 3.9 Chloride 94 L Carbon Dioxide 29 BUN 24 H Creatinine 0.63 Estimated GFR > 60.0 BUN/Creatinine Ratio 38.1 H Glucose 132 H Calcium 9.9 Total Bilirubin 1.1 AST 37 H ALT 22 Alkaline Phosphatase 106 Total Protein 8.2 Albumin 4.9 Globulin 3.3 Albumin/Globulin Ratio 1.5 Lipase 73 Urine RBC 0-1/hpf Urine WBC 0-1/hpf Ur Squamous Epith Cells 0-1 /hpf Calcium Oxalate Crystal Many H Urine Bacteria None seen Ur Culture Indicated? Cult not indicated SARS-CoV-2 (PCR) 01/05/21 01/06/21 01/06/21 16:32 06:07 06:07 WBC 11.4 H RBC 4.03 Hgb 13.1 Hct 38.7 MCV 96.1 MCH 32.4 MCHC 33.7 RDW 12.4 Plt Count 168 Neut % (Auto) 89.1 H Lymph % (Auto) 4.7 L [place] % (Auto) 5.8 Eos % (Auto) 0.0 L Baso % (Auto) 0.4 Neut # (Auto) 87132 H Lymph # (Auto) 500 L [place] # (Auto) 700 Eos # (Auto) 0 Baso # (Auto) 0 Plt Morphology Comment RBC Morphology Sodium 133 L Potassium 3.9 Chloride 99 Carbon Dioxide 31 BUN 19 H Creatinine 0.51 L Estimated GFR > 60.0 BUN/Creatinine Ratio 37.3 H Glucose 113 H Calcium 8.9 Total Bilirubin AST ALT Alkaline Phosphatase Total Protein Albumin Globulin Albumin/Globulin Ratio Lipase Urine RBC Urine WBC Ur Squamous Epith Cells Calcium Oxalate Crystal Urine Bacteria Ur Culture Indicated? SARS-CoV-2 (PCR) Negative Assessment & Plan Assessment and plan (1) SBO (small bowel obstruction): Status: Acute (2) Cobalamin deficiency: Status: None (3) Vegetarian: Status: None (4) Malnutrition of moderate degree: Status: Acute Assessment & Plan narrative: Baseline thin female with SBO appearing high grade on CT scan. NGT place after 200ml emesis and 400ml removed with suction. Day 4 of no nutrition, weight loss according to patient 5-10lbs in a week. Impression: SBO to be treated initially as non operative. Bowel rest, hydration. Malnutrition: treated with PICC line, TPN (goal of 20-25kcal/kg/day) with no fluid restrictions. COVID-19 COVID-19 status: Negative Time Spent With Patient Time with patient: 30 to 49 minutes with 50% spent counseling/coordinating care Critical Care time: I spent a total of [] minutes of critical care time on this patient's care today; this time is exclusive of procedural time. Quality VTE Deep Vein Thrombosis/Pulmonary Embolism Present on Admission: No
--- NOTE | 2021-01-06 10:14 | CM.DANOTE ---
DCP: Case received, EMR reviewed and met with patient. Introduced self and role. Was able to obtain information regarding patient's baseline activity status prior to hospitalization. DCP assessment completed with information currently available. Patient is a 70 year old female who admitted yesterday afternoon to the care of the hospitalist team. PCP: Dr. Dubose. Payer: confirmed: Medicare/[employer] Patient came to the hospital via private vehicle secondary to having abdominal pain, vomiting, as well as a fever. Her temp had been 100, and was noted to have dark brown emesis. Patient holds current diagnosis of high grade small bowel obstruction, as well as choleithiasis without evidence of acute cholecystitis. She currently has NG tube, and will be admitted to surgery. Met with patient in her room. She was sitting up in bed, NG tube in place. She indicated, she feels better since they put the tube in. She resides in [facility] with her spouse, Oskar. She is independent at her baseline. P: DCP to continue to follow for any needs. Valorie Llamas RN/Sand [place] Discharge Planning/Care Management CM Discharge Assessment Start: 01/06/21 10:12 Freq: Status: Active Protocol: Document 01/06/21 10:12 (Rec: 01/06/21 10:14 [id number]) Discharge Planning Assessment Assigned Principal Gifts Officer Valorie Llamas RN/Sand Miller Advance Directives? Yes Advance Directives on File No History Provided By Patient Prior Living Arrangements House Household Members spouse Type of transporation used prior to Drives own vehicle admit Independent with ADL's Yes Is patient alert and oriented? Yes Caregiver for Another No Barriers to Discharge No Discharge Plan Home Transportation Arrangement Spouse Referrals Initiated None needed Whiteboard Updated in Patient Room with Yes name and ext. # of Principal Gifts Officer Review Status In Process Next Review Type Continued Stay Review
--- NOTE | 2021-01-06 10:34 | PC.NURSE ---
Introduced myself to patient as the DI nurse and explained that I would be placing a PICC line. We talked about what it is and some of the risks. The patient is not sure she wants to have this done. I answered her questions and left her the consent form to look over. I told her if I could find a PICC patient pamphlet I would bring that back as well. Will check back in with patient around 2:30-3pm. I let her nurse, Letitia, know of our conversation also.
[2021-01-06] MEDS: MAGNESIUM SULFATE 2 GM, FOLIC ACID 1 MG, THIAMINE 100 MG, MULTIVITAMIN 10 ML in SODIUM ... IV (11:05)
--- NOTE | 2021-01-06 12:32 | PC.NURSE ---
Pt received lying in bed A&Ox3. Although no reports of vomitting overnight, pt with x2 large dark brown emesis this a.m. MD Gutierrez ordered NGT previous day. RN placed NGT in L nare connected to LIWS. x1 cannister filled 1,000ml of dark brown liquid obtained. Pt reports nausea and abdominal pain much improved. BS +x4. XRAY confirmed NGT in stomach. Pt expressed concern of losing more weight and concern of nourishment However she declined PICC line this a.m. DI nurse will return this afternoon, and allow patient to think about the option.
[2021-01-07 00:35] VITALS: BP 124/67; PULSE 80; RESP 16; TEMP 36.6; O2SAT 98
[2021-01-07] MEDS: LACTATED RINGERS 1,000 ML 125 ML IV ×2 (02:36→12:43)
[2021-01-07 05:48] LABS: BUN Creatinine Ratio 38.5 (6-22); Blood Urea Nitrogen 20 mg/dL (7-17); Calcium 8.7 mg/dL (8.4-10.2); Carbon Dioxide 32 mmol/L (22-32); Chloride 100 mmol/L (98-107); Estimated Glomerular Filt Rate > 60.0 mL/min (>60); Glucose 83 mg/dL (80-110); HEMOLYSIS < 15 (0-50); Phosphorous 2.8 mg/dL (2.8-4.1); Potassium 4.6 mmol/L (3.4-5.1); Sodium 135 mmol/L (137-145)
[2021-01-07 05:52] LABS: C-Reactive Protein Quant 5.8 mg/dL (<1.0)
[2021-01-07 05:55] LABS: Prealbumin 11.2 mg/dL (17.6-36.0)
[2021-01-07 07:25] VITALS: BP 138/68; PULSE 80; RESP 18; TEMP 36.7; O2SAT 99
--- NOTE | 2021-01-07 11:58 | DIET.PN1 ---
Dietary Progress Note Assessment: 70y F admitted for abd px, fever, vomiting found to have high grade SBO referred to nutrition for specialty diet, low BMI, and refusal of TPN. 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 Pt lives on [facility] and follows a modified [facility] diet (oil free vegan with some nut and honey consumption). Pt avoids all meat, dairy, eggs, only small amounts of avocado oil for nut/seed oil. Pt eats extremely high fiber diet, has own garden. Pt reports, no one can believe how much I can eat and still stay thin. Pt does not smoke or use etoh, is caffeine sensitive. Pt reports similar sx to SBO throughout the years in the past but not as severe. Usually doesn't eat for a day or two and it resolves, occasional vomiting. Pt noticing some bloating/abd distention only after dinner meals. Usual Day: B: porriage of sorghum, oats, millet, teff, barley with blueberries, walnuts, hemp, aguila, flax, sesame seeds ++ pt recently increased intake aguila seeds to 2 Tbs/day L: hummus and veggie wrap D: veggie stir garcia with brown rice drinks water RD Impression: Pt has extremely healthy diet which is high in dietary soluble and insoluble fiber. Super high fiber diet puts her at risk for phytobezoar formation (jose recent increase aguila seed), low body weight secondary to fiber blocking absorption of nutrients/calories, and bloating secondary to high fiber intake. Pt with restrictive diet which will make clear liquid and full liquid diets more of a challenge, RD and FSD formulating appropriate plan of care to share with kitchen in anticipation of future advancing diet. Pt refusing TPN and would prefer to remain NPO though she is on day 4 no PO with BMI 17. Ht: 175.26 cm Wt: 52.163 kg BMI: 16.9 Last BM: 01/04/21 (01/05/21 18:38) MNA: 9 Manuel Score: 20 Diet: 01/06/21 13:25 NPO Diet Diet Modifications: Except for ICE CHIPS, document ML intake ice! Safety Tray needed?: No NPO Type: NPO except for Ice Chips Labs: RBC 4.03 X10^6/uL (4.0-5.2) 01/06/21 06:07 Hgb 13.1 g/dL (12.0-16.0) 01/06/21 06:07 Hct 38.7 % (36-46) 01/06/21 06:07 Creatinine 0.52 mg/dL (0.52-1.04) 01/07/21 05:27 Nutrition Diagnosis: 1. Inadequate protein energy intake r/t inability to tolerate PO intake aeb pt with high grade SBO, NPO x4d, pt refuses PICC placement and TPN, pt high risk BMI of 17, c NGT on lis. 2. Predicted excessive intake dietary fiber r/t restrictive dietary practices aeb pt follows oil-free vegan diet, food recall shows greater than 40g dietary fiber daily, pt reports sx of bloating after dinner meal, BMI 17.0. Interventions: 1. Educated pt on importance of adequate hydration with high fiber intake, chewing food well and eating slowly. Consideration to be made in limiting fiber to 30g/d (reccs for woman her age are 20g/d, pt easily eating double this). 2. Educated pt on rationale for TPN, pt remains adamant she prefers not to undergo invasive PICC line placement. Collaborated c pt on details of dietary regimen to formulate appropriate clear and full liquid diet options. EER: 1,560kcals (30kcal/kg per underweight), 62g PRO (1.2g/kg per underweight) Monitoring/Evaluations: POC, diet advancement
--- NOTE | 2021-01-07 13:25 | CM.DPC ---
DCP Cont: Pt remains NPO with NGT and due to pt's NPO status and ongoing refusal for PICC placement for TPN, Dietary Consult placed. Pt is on day 4 of NPO and confirmed with laundry presser Paulina that she prefers to remain NPO rather than begin TPN at this time. Dietary to continue working with pt and kitchen staff towards eventual progressing of her diet and appropriate items. Pt lives on [place] and is quite independent at baseline and eats a restrictive diet and vegan which makes advancing her diet somewhat challenging. Pt preference is still home when stable. Plan: SW to follow closely for pt to resolve conservatively vs possible need for TPN and progression of diet and confirm safe plan of home to [place] and any further identified d/c planning needs. MACO Quick
[2021-01-07 15:45] VITALS: BP 148/71; PULSE 76; RESP 17; TEMP 36.9; O2SAT 98
--- NOTE | 2021-01-07 19:53 | PM.PN.1 ---
Subjective Subjective Date Patient Seen: 01/07/21 Time Patient Seen: 19:53 Interval history: Patient states that she is feeling much better. Lots of flatus Pain gone Exam Vital Signs (past 8 hours): - 01/07/21 15:45 Temperature 98.5 F Pulse Rate 76 Respiratory Rate 17 Blood Pressure 148/71 H Pulse Oximetry 98 Oxygen Delivery Method Room Air Oxygen Flow Rate 0 Narrative Exam Narrative: Thin, otherwise healthy lady in NAD GI Palpation: soft Skin General: dry skin and warm Neuro General: patient alert Speech: speech normal Psych Speech and Movement: speech and movement normal Affect: normal affect Attitude: cooperative Thought Process: normal Thought Content: normal Judgment: judgment good Objective Labs Result Diagrams: 01/06/21 06:07 01/07/21 05:27 Labs: Laboratory Results - last 24 hr 01/07/21 01/07/21 05:27 05:27 Sodium 135 L Potassium 4.6 Chloride 100 Carbon Dioxide 32 BUN 20 H Creatinine 0.52 Estimated GFR > 60.0 BUN/Creatinine Ratio 38.5 H Glucose 83 Calcium 8.7 Phosphorus 2.8 Magnesium 2.0 C-Reactive Protein 5.8 H Prealbumin 11.2 L PFSH Social History household members: spouse Smoking Status: Never smoker Assessment & Plan Assessment & Plan narrative: Admitted with probable PSBO Now having flatus, pain gone. Remove NG Liqs in AM Time Spent With Patient Time with patient: 30 to 49 minutes with 50% spent counseling/coordinating care Critical Care time: I spent a total of [] minutes of critical care time on this patient's care today; this time is exclusive of procedural time. Quality VTE Deep Vein Thrombosis/Pulmonary Embolism Present on Admission: No
[2021-01-07] MEDS: SODIUM CHLORIDE 0.9% FLUSH 10 ML IV (20:57)
[2021-01-08 01:30] VITALS: BP 127/67; PULSE 76; RESP 16; TEMP 36.8; O2SAT 97
--- NOTE | 2021-01-08 02:35 | PC.NURSE ---
Patient is alert and oriented. Breath sounds CTA with RA sat of 97%. HRR. Denies nausea. BT hyperactive. Has not yet had a BM (last was 01/04) but is now passing flatus. Denies dysuria, frequency or urgency with urination. Able to turn herself in bed and gets up to bathroom with SBA. Denies pain. Remains NPO except for ice/sips. Reports having fallen first week of November so fall risk score is high and bed alarm is activated but patient does call for assistance appropriately.
[2021-01-08] MEDS: LACTATED RINGERS 1,000 ML 125 ML IV (04:49)
[2021-01-08 07:41] VITALS: BP 108/55; PULSE 58; RESP 16; TEMP 36.9; O2SAT 100
--- NOTE | 2021-01-08 08:54 | P.PN_ITS ---
Subjective Subjective Date Patient Seen: 01/08/21 Time Patient Seen: 08:54 Exam Vital Signs (past 8 hours): - 01/08/21 01:30 01/08/21 07:41 Temperature 98.3 F 98.5 F Pulse Rate 76 58 L Respiratory Rate 16 16 Blood Pressure 127/67 108/55 L Pulse Oximetry 97 100 Oxygen Delivery Method Room Air Oxygen Flow Rate 0 Const General: cooperative and healthy appearing Orientation: alert and awake Resp Effort & Inspection: normal respiratory effort Auscultation: clear to auscultation bilaterally Cardio Rate: regular rate Rhythm: regular rhythm GI Palpation: soft Skin General: dry skin and warm Extrem General: normal to inspection Psych Affect: normal affect Attitude: cooperative Thought Process: normal Thought Content: normal Judgment: judgment good Objective Labs Result Diagrams: 01/06/21 06:07 01/07/21 05:27 [facility] Social History household members: spouse Smoking Status: Never smoker Assessment & Plan Assessment & Plan narrative: PSBO - resolving Plan - Liqs this morning adv as jarrod Time Spent With Patient Time with patient: less than 30 minutes Critical Care time: I spent a total of [] minutes of critical care time on this patient's care today; this time is exclusive of procedural time. Quality VTE Deep Vein Thrombosis/Pulmonary Embolism Present on Admission: No
[2021-01-08 15:20] VITALS: BP 128/69; PULSE 63; RESP 17; TEMP 37.2; O2SAT 100
[2021-01-08] MEDS: SODIUM CHLORIDE 0.9% FLUSH 10 ML IV (22:12)
[2021-01-09 00:03] VITALS: BP 126/62; PULSE 79; RESP 18; TEMP 36.1; O2SAT 99
[2021-01-09 07:39] VITALS: BP 128/65; PULSE 58; RESP 16; TEMP 36.6; O2SAT 98
--- NOTE | 2021-01-09 08:22 | P.PN_ITS ---
Subjective Subjective Date Patient Seen: 01/09/21 Time Patient Seen: 08:23 Exam Vital Signs (past 8 hours): Oxygen Delivery Method Room Air Oxygen Flow Rate 0 Const General: cooperative and healthy appearing HENMT Face and sinus: normal facial exam Eyes Pupils: PERRL EOM: EOM intact bilaterally Neck Neck: full ROM Resp Effort & Inspection: able to speak in complete sentences Auscultation: clear to auscultation bilaterally Cardio Rate: regular rate Rhythm: regular rhythm GI Palpation: soft Skin General: dry skin and warm Neuro General: patient alert and patient awake Extrem General: normal to inspection and no pedal edema Psych Affect: normal affect Attitude: cooperative Thought Process: normal Thought Content: normal Judgment: judgment good Objective Labs Result Diagrams: 01/06/21 06:07 01/07/21 05:27 [facility] Social History household members: spouse Smoking Status: Never smoker Assessment & Plan Assessment & Plan narrative: PSBO Resolved Home, F/U with LMD as needed Time Spent With Patient Time with patient: less than 30 minutes Critical Care time: I spent a total of [] minutes of critical care time on this patient's care today; this time is exclusive of procedural time. Quality VTE Deep Vein Thrombosis/Pulmonary Embolism Present on Admission: No
--- NOTE | 2021-01-09 08:26 | PM.DS.1 ---
History of Present Illness History of Present Illness Date Patient Seen: 01/09/21 Time Patient Seen: 08:26 Date of Onset of Symptoms: 01/08/21 Chief complaint: abd pain, fever, vomiting Narrative: Started passing gas yesterday, grace reg diet Discharge Providers Provider Date of admission: 01/05/21 17:06 Discharge Date: 01/09/21 Primary care physician: Heidi Dubose MD Consults: 01/07/21 10:05 Consult to Dietitian, Adult Routine Comment: Reason For Exam: Low BMI, NPO status. Discharge provider: Jon Rothman MD Summary Hospital Course Discharge Diagnosis: PSBO Hospital Course: Did well, started passing gas day 2, grace reg diet yesterday, D/C home today Status at Discharge Cognitive/behavioral status at discharge: oriented Functional status at discharge: independent ambulation Overall status at discharge: patient is back to baseline Time Spent with Patient Time spent: Less than 30 minutes Exam Vital Signs (past 8 hours): Oxygen Delivery Method Room Air Oxygen Flow Rate 0 Const General: cooperative Orientation: alert and awake HENMT Head: normal to inspection Eyes General: appearance normal, both eyes and all related structures Neck Neck: full ROM Resp Effort & Inspection: normal respiratory effort Auscultation: clear to auscultation bilaterally Cardio Rate: regular rate Rhythm: regular rhythm GI Palpation: soft Auscultation: normal bowel sounds Skin General: dry skin and warm Neuro General: patient alert and patient awake Extrem General: normal to inspection and no pedal edema Psych Mental Status: mental status grossly normal Speech and Movement: speech and movement normal Affect: normal affect Attitude: cooperative Thought Process: normal Thought Content: normal Judgment: judgment good Objective Labs Result Diagrams: 01/06/21 06:07 01/07/21 05:27 [facility] Social History household members: spouse Smoking Status: Never smoker Discharge Assessment & Plan Assessment and Plan Assessment: PSBO Plan of Treatment: Resolved D/C Home, F/U with LMD as needed Discharge Plan Discharge Plan Patient Disposition: Home Discharge orders & Medications Prescriptions: Continued cyanocobalamin (vitamin B-12) 1,000 MCG tablet extended release 1,000 mcg PO QDAY Qty: 0 RF: 0 Vitamin D3 2,000 mg 2,000 mg DAILY RF: 0 Follow up/Referrals: Heidi Dubose MD [Primary Care Provider] - Diet/Activity/Treatments Diet: Diet as Tolerated Activity: As Grace Skin/Wound/Dressing Care Report to your healthcare provider any signs of infection, such as:: chills, fever and increased pain Discharge Data Primary Care Provider: Heidi Dubose Quality VTE Deep Vein Thrombosis/Pulmonary Embolism Present on Admission: No
--- NOTE | 2021-01-09 09:26 | PC.NURSE ---
Pt ready for d/c to home with spouse. Iv removed. Instructions given on follow up, s/s of sbo, medications, and s/s of stroke. Pt with no questions at this time. Taken down via w/c with spouse and collar starcher.
== END 2021-01-09 09:28 | disposition home or self-care (01) | DRG 389 ==
LOC: ED 16:59 → AC 17:08
PROVIDERS: Emergency Medicine; Admitting Provider Surgery; Emergency Provider Student in an Organized Health Care Education/Training Program; PCP Family Medicine; Referring Provider Student in an Organized Health Care Education/Training Program; Visit Provider Surgery
DX: K56.600 Partial intestinal obstruction, unspecified as to cause (principal); E44.0 Moderate protein-calorie malnutrition; Z68.1 Body mass index [BMI] 19.9 or less, adult; E53.9 Vitamin B deficiency, unspecified; R03.0 Elevated blood-pressure reading, without diagnosis of hypertension; Z20.822 Contact with and (suspected) exposure to COVID-19
CPT/HCPCS: 36415; 74018; 74177; 76705; 80048; 80053; 81003; 81015; 83690; 83735; 84100; 84134; 85025; 86140; 87635; 93005; 93010; 96361; 96374; 96375; 99231; 99232; 99238; 99284; C9803; J2270; J2405; J3475; Q9967

== ENCOUNTER → 2021-08-21 08:00 | Outpatient (CLI) | payer MEDICARE, OTHER, SELFPAY ==
[2021-01-05 18:38] VITALS: BMI 16.9
[2021-08-21 18:23] LABS: Basophils Absolute Auto 0 /uL (0-100); Basophils Percent Auto 0.3 % (0-2); Eosinophils Absolute Auto 400 /uL (0-450); Eosinophils Percent Auto 5.6 % (2-4); Hematocrit 40.4 % (36-46); Hemoglobin 13.6 g/dL (12.0-16.0); Lymphocytes Absolute Auto 1400 /uL (1100-4500); Lymphocytes Percent Auto 20.8 % (25-40); Mean Corpuscular HGB Conc 33.7 % (30-36); Mean Corpuscular Hemoglobin 33.1 PG (26-34); Mean Corpuscular Volume 98.1 fL (80-100); Monocytes Absolute Auto 500 /uL (0-900); Monocytes Percent Auto 8.1 % (3-14); Neutrophils Absolute Auto 4400 /uL (1500-7000); Neutrophils Percent Auto 65.2 % (50-75); Platelet Count 179 X10^3/uL (150-400); Red Blood Cell Count 4.12 X10^6/uL (4.0-5.2); White Blood Cell Count 6.7 X10^3/uL (4.5-11.0)
[2021-08-21 18:29] LABS: Alanine Aminotransferase 22 IU/L (<35); Albumin 4.3 g/dL (3.5-5.0); Albumin Globulin Ratio 1.5 (1.0-2.8); Alkaline Phosphatase 103 U/L (38-126); Aspartate Aminotransferase 32 IU/L (14-36); BUN Creatinine Ratio 16.9 (6-22); Bilirubin Total 0.4 mg/dL (0.2-1.3); Blood Urea Nitrogen 10 mg/dL (7-17); C-Reactive Protein Quant < 0.5 mg/dL (<1.0); Calcium 9.4 mg/dL (8.4-10.2); Carbon Dioxide 32 mmol/L (22-32); Chloride 100 mmol/L (98-107); Cholesterol 160 mg/dL (140-199); Estimated Glomerular Filt Rate > 60 mL/min (>60); Globulin 2.9 g/dL (1.7-4.1); Glucose 86 mg/dL (80-110); HDL Cholesterol 85 mg/dL (40-60); HEMOLYSIS < 15 (0-50); LDL Cholesterol Calculated 59 mg/dL (<100); Potassium 4.1 mmol/L (3.4-5.1); Sodium 139 mmol/L (137-145); Total Protein 7.2 g/dL (6.3-8.2); Triglycerides 80 mg/dL (35-150)
[2021-08-21 19:00] LABS: Add Manual Diff / Slide Review SLIDE REVIEW
[2021-08-21 19:15] LABS: Vitamin B12 Reflex MMA if <400 > 1000 pg/mL (239-931)
== END ==
PROVIDERS: PCP Physician Assistant; Visit Provider Physician Assistant
DX: E53.8 Deficiency of other specified B group vitamins (principal); E44.0 Moderate protein-calorie malnutrition; D72.9 Disorder of white blood cells, unspecified; Z13.220 Encounter for screening for lipoid disorders; Z78.9 Other specified health status; Z90.81 Acquired absence of spleen
CPT/HCPCS: 80053; 80061; 82607; 85025; 86140

== ENCOUNTER → 2023-01-05 11:36 | Outpatient (CLI) | payer MEDICARE, OTHER, SELFPAY ==
[2021-01-05 18:38] VITALS: BMI 16.9
[2023-01-05 20:18] LABS: Add Manual Diff / Slide Review NO; Alanine Aminotransferase 25 IU/L (<35); Albumin 3.9 g/dL (3.5-5.0); Albumin Globulin Ratio 1.3 (1.0-2.8); Alkaline Phosphatase 102 U/L (38-126); Aspartate Aminotransferase 29 IU/L (14-36); BUN Creatinine Ratio 24.1 (6-22); Basophils Absolute Auto 0 /uL (0-100); Basophils Percent Auto 0.7 % (0-2); Bilirubin Total 0.4 mg/dL (0.2-1.3); Blood Urea Nitrogen 13 mg/dL (7-17); Calcium 9.6 mg/dL (8.4-10.2); Carbon Dioxide 31 mmol/L (22-32); Chloride 98 mmol/L (98-107); Cholesterol 147 mg/dL (140-199); Eosinophils Absolute Auto 400 /uL (0-450); Estimated Glomerular Filt Rate > 60 mL/min (>60); Glucose 89 mg/dL (80-110); HDL Cholesterol 76 mg/dL (40-60); HEMOLYSIS < 15 (0-50); Hematocrit 37.3 % (36-46); Hemoglobin 12.7 g/dL (12.0-16.0); LDL Cholesterol Calculated 62 mg/dL (<100); Lymphocytes Absolute Auto 1300 /uL (1100-4500); Lymphocytes Percent Auto 21.6 % (25-40); Mean Corpuscular HGB Conc 34.1 % (30-36); Mean Corpuscular Volume 96.8 fL (80-100); Monocytes Absolute Auto 600 /uL (0-900); Monocytes Percent Auto 10.5 % (3-14); Neutrophils Absolute Auto 3700 /uL (1500-7000); Neutrophils Percent Auto 61.2 % (50-75); Platelet Count 169 X10^3/uL (150-400); Potassium 4.7 mmol/L (3.4-5.1); Red Blood Cell Count 3.85 X10^6/uL (4.0-5.2); Red Cell Distribution Width 12.9 % (11.6-14.8); Sodium 136 mmol/L (137-145); Total Protein 6.9 g/dL (6.3-8.2); Triglycerides 45 mg/dL (35-150); White Blood Cell Count 6.1 X10^3/uL (4.5-11.0)
[2023-01-05 20:34] LABS: Vitamin D 25 Hydroxy (D3) 34.4 ng/mL (30.0-100.0)
[2023-01-05 20:44] LABS: TSH w/ Reflex to FT4 2.51 uIU/mL (0.47-4.68)
== END ==
PROVIDERS: PCP Physician Assistant Medical; Visit Provider Physician Assistant Medical
DX: L65.9 Nonscarring hair loss, unspecified (principal); E53.8 Deficiency of other specified B group vitamins; M85.80 Other specified disorders of bone density and structure, unspecified site; E44.0 Moderate protein-calorie malnutrition; E61.1 Iron deficiency
CPT/HCPCS: 80053; 80061; 82306; 84443; 85025

== ENCOUNTER → 2023-02-01 09:55 | Outpatient (CLI) | payer MEDICARE, OTHER, SELFPAY ==
[2021-01-05 18:38] VITALS: BMI 16.9
--- NOTE | 2023-02-01 09:56 | DI.RAD.S_ITS ---
Bone Density Report Name: ELIA SANDERSON Age: 72 Sex: Female Ethnicity: White Date of : 1950 Indication: postmenopausal; screening for osteoporosis; Referring Provider: SIMA ALVAREZ Study: Bone densitometry was performed. Exam Date: February 01, 2023 Accession number: [id number] Bone Density: Region BMD T-score Z-score Classification AP Spine(L1-L4) 0.590 -4.2 -2.0 Osteoporosis Femoral Neck (Left) 0.467 -3.4 -1.6 Osteoporosis Total Hip (Left) 0.487 -3.7 -2.2 Osteoporosis Femoral Neck (Right) 0.534 -2.8 -1.0 Osteoporosis Total Hip (Right) 0.507 -3.6 -2.0 Osteoporosis Total Hip Mean 0.497 -3.7 -2.1 Osteoporosis World Health Organization criteria for BMD impression classify patients as: Normal (T-score at or above -1.0), Osteopenia (T-score between -1.0 and -2.5), or Osteoporosis (T-score at or below -2.5). 10-year Fracture Risk: FRAX not reported because: Some T-score for Spine Total or Hip Total or Femoral Neck at or below -2.5 Impression: The patient has osteoporosis, based on the Total Spine T-score. Discussion: HIGH RISK OF FRACTURE. BONE DENSITY IS UNDESIRABLY LOW AT ONE OR MORE SKELETAL SITES, CONSISTENT WITH OSTEOPOROSIS. ALSO, BONE DENSITY IS LOWER THAN EXPECTED FOR AGE AND SEX AT ONE OR MORE SKELETAL SITES; RECOMMEND A DILIGENT SEARCH FOR SECONDARY CAUSES OF BONE LOSS. This patient's lowest T-score meets the World Health Organization's (WHO) criteria for osteoporosis at one or more sites (T-score -2.5 or below). In untreated patients, the risk of osteoporotic fracture increases approximately two-fold for each 1.0 SD decrease in T-score. Low bone density is not the only risk factor for fracture; also consider factors such as patient's age, frailty or poor health, risk of falling, risk of injury, previous osteoporotic fracture, family history of osteoporosis, cigarette smoking, low body weight, etc. Not everyone with low bone mineral density has osteoporosis; osteomalacia and other metabolic bone disorders should also be considered. Patients who have osteoporosis should be evaluated for specific diseases and conditions (secondary causes) that may cause or contribute to bone loss. The [place] [employer]ocrinologists (AACE) and National Osteoporosis Foundation (NOF) recommend pharmacologic intervention for all postmenopausal women whose T-score is in this range. Also, this patient's bone mineral density is below the range considered normal for healthy age-, sex-, and race-matched controls at least one site (Z-score -2.0 or below). This warrants careful evaluation for diseases and conditions that may contribute to accelerated bone loss. The patient should follow a healthful lifestyle (good nutrition with adequate calcium and vitamin D, and appropriate weight-bearing exercise). Follow-Up: Consider a repeat BMD and Vertebral Fracture Assessment (VFA) exam in 2 years or sooner if medically necessary, to reassess this patient's status. Reported by: SAIRA RAY MD on 02/01/2023 10:33:00 AM.
== END ==
PROVIDERS: PCP Physician Assistant Medical; Referring Provider Physician Assistant Medical; Visit Provider Physician Assistant Medical
DX: M81.0 Age-related osteoporosis without current pathological fracture (principal)
CPT/HCPCS: 77080

== ENCOUNTER → 2023-02-17 08:43 | Outpatient (CLI) | payer MEDICARE, OTHER, SELFPAY ==
[2021-01-05 18:38] VITALS: BMI 16.9
[2023-02-17 19:16] LABS: Add Manual Diff / Slide Review NO; Basophils Absolute Auto 0 /uL (0-100); Basophils Percent Auto 0.8 % (0-2); Eosinophils Absolute Auto 300 /uL (0-450); Eosinophils Percent Auto 5.2 % (2-4); Hematocrit 37.3 % (36-46); Hemoglobin 12.7 g/dL (12.0-16.0); Lymphocytes Absolute Auto 900 /uL (1100-4500); Lymphocytes Percent Auto 14.9 % (25-40); Mean Corpuscular HGB Conc 34.2 % (30-36); Mean Corpuscular Hemoglobin 33.6 PG (26-34); Mean Corpuscular Volume 98.2 fL (80-100); Monocytes Absolute Auto 600 /uL (0-900); Monocytes Percent Auto 9.2 % (3-14); Neutrophils Absolute Auto 4400 /uL (1500-7000); Neutrophils Percent Auto 69.9 % (50-75); Platelet Count 161 X10^3/uL (150-400); Red Blood Cell Count 3.79 X10^6/uL (4.0-5.2); Red Cell Distribution Width 12.6 % (11.6-14.8); White Blood Cell Count 6.3 X10^3/uL (4.5-11.0)
[2023-02-17 19:29] LABS: Alanine Aminotransferase 26 IU/L (<35); Albumin 3.8 g/dL (3.5-5.0); Albumin Globulin Ratio 1.3 (1.0-2.8); Alkaline Phosphatase 103 U/L (38-126); Aspartate Aminotransferase 35 IU/L (14-36); BUN Creatinine Ratio 27.5 (6-22); Bilirubin Total 0.4 mg/dL (0.2-1.3); Blood Urea Nitrogen 14 mg/dL (7-17); Calcium 9.5 mg/dL (8.4-10.2); Carbon Dioxide 31 mmol/L (22-32); Chloride 96 mmol/L (98-107); Estimated Glomerular Filt Rate > 60 mL/min (>60); Globulin 2.9 g/dL (1.7-4.1); Glucose 76 mg/dL (80-110); HEMOLYSIS < 15 (0-50); Potassium 4.3 mmol/L (3.4-5.1); Sodium 134 mmol/L (137-145); Total Protein 6.7 g/dL (6.3-8.2)
[2023-02-21 15:47] LABS: Calcium 9.3 mg/dL (8.7-10.3); Parathyroid Hormone, Intact 37 pg/mL (15-65)
== END ==
PROVIDERS: PCP Physician Assistant Medical; Visit Provider Physician Assistant Medical
DX: M81.0 Age-related osteoporosis without current pathological fracture (principal); E87.1 Hypo-osmolality and hyponatremia; M25.562 Pain in left knee; Z90.81 Acquired absence of spleen; E53.8 Deficiency of other specified B group vitamins
CPT/HCPCS: 80053; 82310; 83970; 85025

== ENCOUNTER → 2023-07-14 09:09 | Outpatient (CLI) | payer MEDICARE, OTHER, SELFPAY ==
[2021-01-05 18:38] VITALS: BMI 16.9
[2023-07-14 20:41] LABS: Phosphorous 4.1 mg/dL (2.8-4.1)
[2023-07-14 22:30] LABS: Vitamin D 25 Hydroxy (D3) 35.7 ng/mL (30.0-100.0)
[2023-07-14 23:37] LABS: Calcium 24 Hour Urine 165 mg/day (100-300); Calcium Urine Random 5.9 mg/dL; Collection Time Urine 24 Hours; Total Volume Urine 2800 mL
[2023-07-14 23:38] LABS: Collection Time Urine 24 Hours; Creatinine 24 Hour Urine 697 mg/day (800-1800); Creatinine Urine Random 24.9 mg/dL; Total Volume Urine 2800 mL
[2023-07-15 02:32] LABS: Alanine Aminotransferase 26 IU/L (<35); Albumin 3.9 g/dL (3.5-5.0); Albumin Globulin Ratio 1.3 (1.0-2.8); Alkaline Phosphatase 115 U/L (38-126); Aspartate Aminotransferase 35 IU/L (14-36); BUN Creatinine Ratio 23.1 (6-22); Bilirubin Total 0.6 mg/dL (0.2-1.3); Blood Urea Nitrogen 12 mg/dL (7-17); Calcium 9.5 mg/dL (8.4-10.2); Carbon Dioxide 28 mmol/L (22-32); Chloride 104 mmol/L (98-107); Estimated Glomerular Filt Rate > 60 mL/min (>60); Glucose 83 mg/dL (80-110); HEMOLYSIS < 15 (0-50); Potassium 4.3 mmol/L (3.4-5.1); Sodium 137 mmol/L (137-145); Total Protein 6.9 g/dL (6.3-8.2)
[2023-07-17 13:42] LABS: Deamidated Gliadin Ab IgA 6 units (0-19); Deamidated Gliadin Ab IgG 2 units (0-19); Immunoglobulin A,Qn 414 mg/dL (87-352); t-Transglutaminase IgA <2 U/mL (0-3)
[2023-07-19 10:14] LABS: Alkaline Phosphatase, Bone Spe 25.9 ug/L (.)
[2023-07-19 15:09] LABS: C-Telopeptide, Serum 686 pg/mL (.)
== END ==
PROVIDERS: PCP Physician Assistant Medical; Visit Provider Internal Medicine
DX: M81.0 Age-related osteoporosis without current pathological fracture (principal)
CPT/HCPCS: 80053; 82306; 82340; 82523; 82570; 82784; 83516; 84080; 84100

== ENCOUNTER → 2023-10-12 14:20 | Outpatient (CLI) | payer MEDICARE, OTHER, SELFPAY ==
[2021-01-05 18:38] VITALS: BMI 16.9
== END ==
PROVIDERS: PCP Physician Assistant Medical; Visit Provider Internal Medicine
DX: R76.8 Other specified abnormal immunological findings in serum (principal)
CPT/HCPCS: 82784; 83516

== ENCOUNTER → 2024-01-23 09:26 | Outpatient (CLI) | payer MEDICARE, OTHER, SELFPAY ==
[2021-01-05 18:38] VITALS: BMI 16.9
[2024-01-23 20:41] LABS: Calcium 9.6 mg/dL (8.4-10.2); Estimated Glomerular Filt Rate > 60 mL/min (>60)
[2024-01-23 21:00] LABS: Vitamin D 25 Hydroxy (D3) 38.3 ng/mL (30.0-100.0)
[2024-02-02 18:36] LABS: C-Telopeptide, Serum 459 pg/mL (.)
== END ==
PROVIDERS: PCP Physician Assistant Medical; Referring Provider Internal Medicine; Visit Provider Internal Medicine
DX: M81.0 Age-related osteoporosis without current pathological fracture (principal)
CPT/HCPCS: 82306; 82310; 82523; 82565

== ENCOUNTER → 2024-04-04 09:53 | Outpatient (CLI) | payer MEDICARE, OTHER, SELFPAY ==
[2021-01-05 18:38] VITALS: BMI 16.9
[2024-04-04 19:46] LABS: Hemoglobin 13.3 g/dL (12.0-16.0); Mean Corpuscular HGB Conc 33.2 % (30-36); Mean Corpuscular Hemoglobin 33.3 PG (26-34); Mean Corpuscular Volume 100.4 fL (80-100); Platelet Count 174 X10^3/uL (150-400); Red Blood Cell Count 3.99 X10^6/uL (4.0-5.2); Red Cell Distribution Width 12.8 % (11.6-14.8); White Blood Cell Count 6.7 X10^3/uL (4.5-11.0)
[2024-04-04 20:21] LABS: Alanine Aminotransferase 28 IU/L (<35); Albumin 3.8 g/dL (3.5-5.0); Albumin Globulin Ratio 1.3 (1.0-2.8); Alkaline Phosphatase 101 U/L (38-126); Aspartate Aminotransferase 36 IU/L (14-36); BUN Creatinine Ratio 21.7 (6-22); Bilirubin Total 0.5 mg/dL (0.2-1.3); Blood Urea Nitrogen 13 mg/dL (7-17); Calcium 9.7 mg/dL (8.4-10.2); Carbon Dioxide 33 mmol/L (22-32); Chloride 102 mmol/L (98-107); Cholesterol 145 mg/dL (140-199); Estimated Glomerular Filt Rate > 60 mL/min (>60); Globulin 2.9 g/dL (1.7-4.1); Glucose 90 mg/dL (80-110); HDL Cholesterol 88 mg/dL (40-60); HEMOLYSIS < 15 (0-50); LDL Cholesterol Calculated 46 mg/dL (<100); Potassium 4.3 mmol/L (3.4-5.1); Sodium 135 mmol/L (137-145); Total Protein 6.7 g/dL (6.3-8.2); Triglycerides 56 mg/dL (35-150)
[2024-04-04 21:20] LABS: Vitamin B12 996 pg/mL (239-931)
== END ==
PROVIDERS: PCP Physician Assistant Medical; Visit Provider Physician Assistant Medical
DX: E61.1 Iron deficiency (principal); R00.2 Palpitations; Z13.6 Encounter for screening for cardiovascular disorders; E53.8 Deficiency of other specified B group vitamins
CPT/HCPCS: 80053; 80061; 82607; 84443; 85027